=== PATIENT | female | born 1940 | race Caucasian/White ===

== ENCOUNTER 2021-09-13 21:27 | Inpatient (IN) | payer MEDICARE, BC ==
[2021-09-13 22:39] LABS: #Neutrophils 8.8 10x3/uL (1.5-8.4); %Basophils 0.2 % (0.0-2.0); %Eosinophils 0.1 % (0.0-6.0); %Lymphocytes 2.5 % (18.0-47.0); %Monocytes 9.7 % (0.0-10.0); %Neutrophils 86.9 % (40.0-75.0); Hemoglobin 11.5 g/dL (12.0-15.5); Mean Corpuscular HGB CONC 33.7 g/dL (32.0-36.0); Mean Corpuscular Hemoglobin 32.5 pg (27.0-33.0); Mean Corpuscular Volume 96.3 fl (81.6-98.3); Mean Platelet Volume 9.6 fl (7.4-10.4); Platelet Count 218 10x3/uL (150-450); RBC Distribution Width 12.9 % (11.5-14.5); Red Blood Cell (RBC) Count 3.54 10x6/uL (3.90-5.03); White Blood Cell (WBC) Count 10.1 10x3/uL (3.5-10.5)
[2021-09-13 23:11] LABS: ALT (SGPT) 16 U/L (8-55); AST (SGOT) 23 U/L (5-34); Albumin 3.6 g/dL (3.4-4.8); Alkaline Phosphatase 56 U/L (40-110); Anion Gap 15 mmol/L (10-20); BUN (Urea Nitrogen) 22 mg/dL (9.8-20.1); Bilirubin, Total 0.7 mg/dL (0.2-1.2); Calc. Creatinine Clearance 0 mL/min (70-130); Calcium 9.9 mg/dL (7.8-10.44); Carbon Dioxide 20 mmol/L (23-31); Chloride 103 mmol/L (98-107); Globulin 3.5 g/dL (2.4-3.5); Glucose 113 mg/dL (83-110); Potassium 3.6 mmol/L (3.5-5.1); Protein, Total 7.1 g/dL (5.8-8.1); Sodium 134 mmol/L (136-145)
[2021-09-13 23:12] LABS: Bilirubin Neg (Negative); Blood, Urine 250 (Negative); Clarity Clear (Clear); Glucose, Urine (Dipstick) Normal (Negative); Ketone, Urine 5 mg/dL (Negative); Leukocyte 25 (Negative); Nitrite Positive (Negative); Protein, Urine (Dipstick) 30 mg/dl (Neg-Trace); Specific Gravity, Urine 1.015 (1.002-1.036); Urobilinogen Normal mg/dL (Less than 2)
[2021-09-13] MEDS ORDERED: cefTRIAXone\\ROCEPHIN 1 GM VIAL ONE (23:13)
[2021-09-13 23:30] LABS: RBC/HPF 0-3 HPF (0-3)
[2021-09-13 23:31] LABS: Bacteria/HPF 4+ HPF (None Seen)
[2021-09-14 00:22] LABS: SARS-CoV-2 NAA Rapid Test Not Detected (NotDetected)
[2021-09-14 01:54] VITALS: BMI 28.2
[2021-09-14] MEDS ORDERED: Vancomycin 1.5 GRAM/300 ML BAG 1.5 GM in Premix Bag 1 BAG IVPB SCH (03:00)
[2021-09-14] MEDS ORDERED: Cefepime 2 GM in Sodium Chloride 0.9% 100 ML IVPB SCH (04:00)
[2021-09-14 04:10] LABS: %Basophils 0.2 % (0.0-2.0); %Lymphocytes 2.6 % (18.0-47.0); %Neutrophils 85.8 % (40.0-75.0); Hemoglobin 10.4 g/dL (12.0-15.5); Mean Corpuscular HGB CONC 34.1 g/dL (32.0-36.0); Mean Corpuscular Volume 93.8 fl (81.6-98.3); Mean Platelet Volume 9.8 fl (7.4-10.4); Platelet Count 217 10x3/uL (150-450); RBC Distribution Width 13.2 % (11.5-14.5); Red Blood Cell (RBC) Count 3.25 10x6/uL (3.90-5.03); White Blood Cell (WBC) Count 9.3 10x3/uL (3.5-10.5)
[2021-09-14] MEDS: NS 0.9% w/ 20 MEQ KCL 1,000 ML/1,000 ML BAG IV SCH ×3 (04:13→20:34)
[2021-09-14] MEDS: Acetaminophen 325 MG TAB PO PRN ×2 (04:13→14:06)
[2021-09-14 04:19] LABS: Anion Gap 13 mmol/L (10-20); BUN (Urea Nitrogen) 20 mg/dL (9.8-20.1); Calc. Creatinine Clearance 58 mL/min (70-130); Calcium 9.5 mg/dL (7.8-10.44); Carbon Dioxide 20 mmol/L (23-31); Chloride 106 mmol/L (98-107); Glucose 110 mg/dL (83-110); Magnesium 1.9 mg/dL (1.6-2.6); Potassium 3.3 mmol/L (3.5-5.1); Sodium 136 mmol/L (136-145)
[2021-09-14] MEDS: Metoprolol Tartrate 25 MG TAB PO SCH ×2 (14:05→20:44)
[2021-09-14] MEDS: Losartan Potassium 50 MG TAB PO SCH (14:05)
[2021-09-14] MEDS: Enoxaparin Sodium 40 MG/0.4 ML SYRINGE SC SCH (14:05)
[2021-09-14] MEDS: Hydrochlorothiazide 25 MG TAB PO SCH (14:07)
[2021-09-14] MEDS: Citalopram 20 MG TAB PO SCH (14:07)
[2021-09-14] MEDS: Triple Antibiotic Oint 1 GM Packet TOP SCH ×2 (14:12→20:44)
[2021-09-14] MEDS: Cefepime 2 GM in Sodium Chloride 0.9% 100 ML IVPB SCH (17:31)
[2021-09-14] MEDS: Simvastatin 10 MG TAB PO SCH (20:46)
[2021-09-15] MEDS ORDERED: VANCOMYCIN 1.25 GM/250 ML BAG 1.25 GM in Premix Bag 1 BAG IVPB SCH (03:00)
[2021-09-15] MEDS: Cefepime 2 GM in Sodium Chloride 0.9% 100 ML IVPB SCH (06:22)
[2021-09-15] MEDS ORDERED: FLU VACC QS2021-22(65YR UP)/PF 240 MCG/0.7 ML SYRINGE IM ONE (09:00)
[2021-09-15] MEDS: NS 0.9% w/ 20 MEQ KCL 1,000 ML/1,000 ML BAG IV SCH ×2 (09:38→21:39)
[2021-09-15] MEDS: Enoxaparin Sodium 40 MG/0.4 ML SYRINGE SC SCH (09:39)
[2021-09-15] MEDS: Metoprolol Tartrate 25 MG TAB PO SCH ×2 (09:42→21:14)
[2021-09-15] MEDS: Citalopram 20 MG TAB PO SCH (09:42)
[2021-09-15] MEDS: Losartan Potassium 50 MG TAB PO SCH (09:42)
[2021-09-15] MEDS: Hydrochlorothiazide 25 MG TAB PO SCH (09:42)
[2021-09-15] MEDS: Triple Antibiotic Oint 1 GM Packet TOP SCH ×2 (12:37→23:54)
[2021-09-15] MEDS: cefTRIAXone\\ROCEPHIN 1 GM in Sodium Chloride 0.9% 100 ML IVPB SCH (16:51)
[2021-09-15] MEDS: TETANUS, DIPHTHERIA TOX,ADULT (TDVAX) 0.5 ML VIAL IM ONE ×2 (18:24→18:25)
[2021-09-15] MEDS: Simvastatin 10 MG TAB PO SCH (21:13)
[2021-09-16 02:36] LABS: Vancomycin, Trough 14.7 ug/mL
[2021-09-16] MEDS: Losartan Potassium 50 MG TAB PO SCH (09:26)
[2021-09-16] MEDS: Hydrochlorothiazide 25 MG TAB PO SCH (09:26)
[2021-09-16] MEDS: NS 0.9% w/ 20 MEQ KCL 1,000 ML/1,000 ML BAG IV SCH ×2 (09:26→15:00)
[2021-09-16] MEDS: Enoxaparin Sodium 40 MG/0.4 ML SYRINGE SC SCH (09:27)
[2021-09-16] MEDS: Triple Antibiotic Oint 1 GM Packet TOP SCH ×2 (09:27→22:57)
[2021-09-16] MEDS: Metoprolol Tartrate 25 MG TAB PO SCH ×2 (09:27→20:10)
[2021-09-16] MEDS: Citalopram 20 MG TAB PO SCH (09:27)
[2021-09-16] MEDS ORDERED: Magnesium 2 GM/50 ML 2 GM in Premix Bag 1 BAG IVPB SCH (12:30)
[2021-09-16] MEDS ORDERED: Potassium Chloride 20 MEQ TAB PO SCH (12:30)
[2021-09-16] MEDS: Acetaminophen 325 MG TAB PO PRN ×2 (13:11→20:11)
[2021-09-16] MEDS ORDERED: hydrALAZINE 20 MG/ML VIAL SLOW IVP PRN (16:08)
[2021-09-16] MEDS: cefTRIAXone\\ROCEPHIN 1 GM in Sodium Chloride 0.9% 100 ML IVPB SCH (17:26)
[2021-09-16] MEDS ORDERED: Losartan Potassium 50 MG TAB PO SCH (17:30)
[2021-09-16] MEDS: Simvastatin 10 MG TAB PO SCH (20:10)
[2021-09-17] MEDS: NS 0.9% w/ 20 MEQ KCL 1,000 ML/1,000 ML BAG IV SCH ×2 (02:55→18:12)
[2021-09-17 06:02] LABS: Anion Gap 11 mmol/L (10-20); BUN (Urea Nitrogen) 16 mg/dL (9.8-20.1); Calc. Creatinine Clearance 67 mL/min (70-130); Calcium 9.4 mg/dL (7.8-10.44); Carbon Dioxide 18 mmol/L (23-31); Chloride 112 mmol/L (98-107); Glucose 73 mg/dL (83-110); Magnesium 2.2 mg/dL (1.6-2.6); Potassium 4.5 mmol/L (3.5-5.1); Sodium 136 mmol/L (136-145)
[2021-09-17] MEDS: Citalopram 20 MG TAB PO SCH (09:13)
[2021-09-17] MEDS: Docusate 100 MG CAP PO SCH ×2 (09:13→20:33)
[2021-09-17] MEDS: Acetaminophen 325 MG TAB PO PRN (09:13)
[2021-09-17] MEDS: Hydrochlorothiazide 25 MG TAB PO SCH (09:14)
[2021-09-17] MEDS: Metoprolol Tartrate 25 MG TAB PO SCH ×3 (09:14→20:41)
[2021-09-17] MEDS: Losartan Potassium 50 MG TAB PO SCH (09:14)
[2021-09-17] MEDS: Enoxaparin Sodium 40 MG/0.4 ML SYRINGE SC SCH (09:15)
[2021-09-17] MEDS: Triple Antibiotic Oint 1 GM Packet TOP SCH ×2 (09:15→20:37)
[2021-09-17] MEDS: cefTRIAXone\\ROCEPHIN 1 GM in Sodium Chloride 0.9% 100 ML IVPB SCH (18:04)
[2021-09-17] MEDS ORDERED: Hydrochlorothiazide 25 MG TAB PO SCH ×2 (19:00→20:00)
[2021-09-17] MEDS: Simvastatin 10 MG TAB PO SCH (20:33)
[2021-09-18] MEDS: Docusate 100 MG CAP PO SCH ×2 (08:12→21:24)
[2021-09-18] MEDS: Enoxaparin Sodium 40 MG/0.4 ML SYRINGE SC SCH (08:45)
[2021-09-18] MEDS: Losartan Potassium 50 MG TAB PO SCH (08:45)
[2021-09-18] MEDS: Citalopram 20 MG TAB PO SCH (08:45)
[2021-09-18] MEDS: Triple Antibiotic Oint 1 GM Packet TOP SCH ×2 (08:46→21:24)
[2021-09-18] MEDS: Hydrochlorothiazide 25 MG TAB PO SCH (08:46)
[2021-09-18] MEDS: Metoprolol Tartrate 25 MG TAB PO SCH ×2 (08:46→21:22)
[2021-09-18] MEDS ORDERED: diphenhydrAMINE 25 MG CAP PO SCH (10:15)
[2021-09-18] MEDS: Simvastatin 10 MG TAB PO SCH (21:24)
[2021-09-19] MEDS: Triple Antibiotic Oint 1 GM Packet TOP SCH (08:00)
[2021-09-19] MEDS ORDERED: predniSONE 20 MG TAB PO SCH (08:00)
[2021-09-19] MEDS: Docusate 100 MG CAP PO SCH (08:47)
[2021-09-19] MEDS: Enoxaparin Sodium 40 MG/0.4 ML SYRINGE SC SCH (08:47)
[2021-09-19] MEDS: Metoprolol Tartrate 25 MG TAB PO SCH (08:48)
[2021-09-19] MEDS: Citalopram 20 MG TAB PO SCH (08:48)
[2021-09-19] MEDS: Hydrochlorothiazide 25 MG TAB PO SCH (08:49)
[2021-09-19] MEDS: Losartan Potassium 50 MG TAB PO SCH (08:49)
[2021-09-19] MEDS ORDERED: diphenhydrAMINE 12.5 MG/5 ML UDCUP PO PRN (08:54)
[2021-09-19] MEDS ORDERED: Loratadine 10 MG TAB PO SCH (09:00)
[2021-09-19 16:08] VITALS: TEMP 97.8
[2021-09-19 16:31] VITALS: BP 119/69
== END 2021-09-19 16:30 | DRG 871 ==
LOC: CSHERS 21:27 → CSHTELE 21:28
PROVIDERS: ADMIT Family Medicine; ATTEND Internal Medicine
DX: A41.9 Sepsis, unspecified organism (principal); G93.41 Metabolic encephalopathy; I69.351 Hemiplegia and hemiparesis following cerebral infarction affecting right dominant side; N39.0 Urinary tract infection, site not specified; Z20.822 Contact with and (suspected) exposure to COVID-19; N18.31 Chronic kidney disease, stage 3a; R29.6 Repeated falls; B96.20 Unspecified Escherichia coli [E. coli] as the cause of diseases classified elsewhere; F32.9 Major depressive disorder, single episode, unspecified; I12.9 Hypertensive chronic kidney disease with stage 1 through stage 4 chronic kidney disease, or unspecified chronic kidney disease; E78.5 Hyperlipidemia, unspecified; F03.90 Unspecified dementia, unspecified severity, without behavioral disturbance, psychotic disturbance, mood disturbance, and anxiety; R21 Rash and other nonspecific skin eruption; Z90.49 Acquired absence of other specified parts of digestive tract; Z90.710 Acquired absence of both cervix and uterus
CPT/HCPCS: 0240U; 36415; 51701; 70450; 71045; 80048; 80053; 80202; 81003; 81015; 83605; 83735; 85025; 87040; 87077; 87086; 87186; 87324; 87449; 93005; 93010; 96365; J0360; J0692; J0696; J1650; J3370; J3475; J3480; J3490; J7512

== ENCOUNTER 2023-02-25 14:02 | Emergency (ER) | payer MEDICARE, BC ==
[2023-02-25 15:27] LABS: Bilirubin Neg (Negative); Blood, Urine 25 (Negative); Clarity Clear (Clear); Glucose, Urine (Dipstick) Normal (Negative); Ketone, Urine Negative (Negative); Leukocyte Negative (Negative); Nitrite Negative (Negative); Protein, Urine (Dipstick) Negative (Neg-Trace); Specific Gravity, Urine 1.015 (1.005-1.030)
[2023-02-25 15:34] LABS: #Eosinphils 0.1 10x3/uL (0.0-0.5); #Monocytes 0.8 10x3/uL (0.0-1.1); #Neutrophils 3.7 10x3/uL (1.5-8.4); %Basophils 0.5 % (0.0-2.0); %Eosinophils 1.8 % (0.0-6.0); %Lymphocytes 16.5 % (18.0-47.0); %Monocytes 13.8 % (0.0-10.0); %Neutrophils 66.9 % (40.0-75.0); Hemoglobin 12.3 g/dL (12.0-15.5); Mean Corpuscular HGB CONC 33.5 g/dL (32.0-36.0); Mean Corpuscular Volume 95.6 fl (81.6-98.3); Mean Platelet Volume 9.7 fl (7.4-10.4); Platelet Count 252 10x3/uL (150-450); RBC Distribution Width 13.1 % (11.5-14.5); Red Blood Cell (RBC) Count 3.84 10x6/uL (3.90-5.03); White Blood Cell (WBC) Count 5.6 10x3/uL (3.5-10.5)
[2023-02-25 15:59] LABS: Bacteria/HPF 2+ HPF (None Seen); RBC/HPF 0-3 HPF (0-3); Squamous Epithelial 0-3 HPF (0-3); WBC/HPF 0-3 HPF (0-3)
[2023-02-25 16:10] LABS: ALT (SGPT) 6 U/L (8-55); AST (SGOT) 15 U/L (5-34); Albumin 3.7 g/dL (3.4-4.8); Alkaline Phosphatase 62 U/L (40-110); Anion Gap 11 mmol/L (10-20); BUN (Urea Nitrogen) 20 mg/dL (9.8-20.1); Bilirubin, Total 0.4 mg/dL (0.2-1.2); Calc. Creatinine Clearance 0 mL/min (70-130); Calcium 10.6 mg/dL (7.8-10.44); Carbon Dioxide 27 mmol/L (23-31); Chloride 100 mmol/L (98-107); Estimated GFR 53; Globulin 3.2 g/dL (2.4-3.5); Glucose 82 mg/dL (83-110); Potassium 3.8 mmol/L (3.5-5.1); Protein, Total 6.9 g/dL (5.8-8.1); Sodium 134 mmol/L (136-145)
== END 2023-02-25 16:54 | disposition home or self-care (01) ==
LOC: CSHERS 14:02
DX: N39.0 Urinary tract infection, site not specified (principal); I10 Essential (primary) hypertension; F03.90 Unspecified dementia, unspecified severity, without behavioral disturbance, psychotic disturbance, mood disturbance, and anxiety; Z86.73 Personal history of transient ischemic attack (TIA), and cerebral infarction without residual deficits
CPT/HCPCS: 36415; 80053; 81003; 81015; 85025; 87086; 99285